=== PATIENT | female | born 1960 | race African-American/Black ===

== ENCOUNTER 2025-06-25 13:33 | Outpatient (AMB) | payer MEDICARE, SELFPAY ==
--- NOTE | 2025-06-25 13:48 | A.PHYSOV ---
Vital Signs 06/25/25 13:52 Height 5 ft 3 in Weight 137 lb BMI 24.3 Intake Visit Reasons: 3M FUV and F/U after injection 04/26/2025 Intake Note: Patient is a 64 year old female in office today for her 3 medication management. She is also here for follow up after injection 04/26/25 L5-S1 epidural steroid injection. Disability Counselor Required: No Allergies iodine Allergy (Unknown, Verified 06/25/25 13:46) Unknown HPI Comments Details: History of Present Illness The patient is a 64 year old individual presenting for a follow-up visit for chronic pain. The patient has a history of polyarticular chronic pain and sarcoidosis. Previously managed on multiple narcotic medications, the patient's pain is now managed with buprenorphine 15 mcg patches and methadone 20 mg twice a day. The patient exercises regularly. The patient recently had an injection for back-related leg pain, which provided good and lasting relief. Her lumbar radicular pain has resolved. She has had similar results with lumbar injections in the past. However, following the last two injections, the patient developed a blister each time, which appeared a day or two after the procedure below the injection site and lasted for about five days. The patient treated the blister with hydrocortisone. The patient has a known allergy to iodine. The patient reports episodes of passing out at home and has seen a primary care physician for a syncope workup. This workup included a heart monitor worn before [place], an EKG, blood work, and a CAT scan, with a cardiac ultrasound scheduled. The patient also developed a skin reaction to the EKG leads, which left red, sore marroquin on the skin. The patient has been restricted from driving and has a neurology consultation scheduled for tomorrow to rule out seizures. Pain Description - The patient suffers from chronic polyarticular pain. - The patient experiences increased pain in the legs, which is believed to be related to the back. - Currently, the patient reports minimal pain. Results - Tests and Diagnostics: A syncope workup has been initiated by the patient's primary care physician, which has included a heart monitor, an EKG, blood work, and a CAT scan. [facility] Medical History (Updated 06/25/25 @ 14:32 by Noel Lui DO) Spinal stenosis, lumbar region with neurogenic claudication Lumbar radiculitis Chronic pain syndrome Surgical History (Updated 06/25/25 @ 13:52 by Dacia Mandujano MA) History of lung surgery (Unknown) H/O tubal ligation (Unknown) H/O shoulder surgery (Unknown) H/O: hysterectomy (Unknown) Social History Household Members: Spouse Alcohol intake: current Alcohol intake frequency: does not drink Patient Tobacco Use Status: Never used Tobacco Current occupational status: retired Review of Systems Narrative Review of Systems - General: Denies fever or chills. - Integumentary: Reports developing a recurring blister below the injection site after the last two procedures, which lasts about five days. 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 - Neurological: Reports episodes of passing out at home. - Genitourinary: Denies any change in bladder habits. - Gastrointestinal: Denies any change in bowel habits. Physical Exam Exam Exam: Physical Exam Patient appears to be in no acute distress, appropriately conversant oriented. She ambulates without antalgia. She was able to perform heel walk and toe walk with support for balance. Lumbar extension was restricted. Dural tension signs were negative. Neurological examination was nonfocal. Patient demonstrated no upper motor neuron signs. Vital Signs: BMI result Body Mass Index 24.3 Assessment & Plan Assessment & Plan (1) Chronic pain syndrome: Code(s): G89.4 - Chronic pain syndrome Category: Medical (2) Lumbar radiculitis: Code(s): M54.16 - Radiculopathy, lumbar region Category: Medical (3) Spinal stenosis, lumbar region with neurogenic claudication: Code(s): M48.062 - Spinal stenosis, lumbar region with neurogenic claudication Category: Medical Plan Pain Management - Analgesia: Pain is currently minimal and well-controlled with a buprenorphine 15 mcg patch and methadone 20 mg twice daily. - Adverse Effects: The patient reports developing a blister after the last two injections, possibly related to the Betadine prep solution used. - Activities of Daily Living: The patient exercises regularly. - Affect: The patient expresses satisfaction with the current level of pain control, stating, I'm loving it. - Aberrant Drug-Related Behaviors: No aberrant behaviors were noted; the patient will call for refills when needed. Plan Patient was informed and verbally consented to the use of an ambient scribe for clinic note documentation during this visit. 1. Chronic Pain The patient's chronic pain is well-controlled with the current regimen of a buprenorphine 15 mcg patch and methadone 20 mg twice daily and after repeated lumbar epidural injection. The patient reported good and lasting relief from a recent injection for back-related leg pain. Continue current medications and follow up in three months, or sooner if needed. 2. Adverse Reaction To Skin Preparation The patient has reported developing a blister after the last two injections, not at the puncture site but inferior to it. Given the history of iodine allergy and the use of Betadine for skin prep, an allergic reaction is considered, though the localized nature is atypical. For future injections, we will use alcohol as the cleaning agent to see if this prevents the reaction. The patient was instructed to provide a reminder of this change before the next procedure. 3. Syncope And Collapse The patient is undergoing a syncope workup with their primary care physician following episodes of passing out at home. This workup includes a heart monitor, upcoming cardiac ultrasound, EKG, blood work, and a CAT scan. The patient is scheduled for a neurology consult to investigate for a possible seizure disorder. Management is deferred to the primary care physician and neurology. The patient will continue with driving restrictions as a safety precaution. Discussion Notes I reviewed the patient's status, noting that their chronic pain remains well controlled with the current regimen of a buprenorphine patch and methadone, with good relief from a recent injection for leg pain. We discussed the recurrent blisters that develop after injections. I explained that while the location of the blister is unusual for a contact allergy to the skin prep, we will use alcohol instead of Betadine for the next procedure to see if it prevents the reaction, given the patient's known iodine allergy. I advised the patient to remind me of this plan before the next injection. I acknowledged the patient's ongoing syncope workup with their primary care physician and the upcoming neurology consultation to rule out seizures. I supported the driving restriction as a necessary safety precaution until a diagnosis is established. We agreed to a follow-up in three months, and I instructed the patient to call for medication refills or any other concerns. Patient Instructions - Continue your current pain medications, including the buprenorphine patch and methadone, as prescribed. - Continue to follow up with your primary care doctor and the neurologist for the evaluation of your fainting spells. - Do not drive until your doctor tells you it is safe. - Before your next injection here, please remind me and the staff that we planned to use alcohol to clean your skin instead of the usual solution. - Schedule a follow-up appointment in three months. - Please call the office if you need medication refills or if your pain gets worse before your next appointment. Coding Level of Care Code Est Pt Level 3 (75567) Complex visit Add On G2211 Diagnoses Chronic pain syndrome G89.4 Lumbar radiculitis M54.16 Spinal stenosis, lumbar region with neurogenic claudication M48.062
[2025-06-25 13:52] VITALS: BMI 24.3
--- OUTSIDE RECORDS SUMMARY | 2025-06-25 15:34 | XMS_ITS | Clinical Summary ---
Author Organization [facility] Address [address] [place] [address] Care Team Providers Care Carpet Journeyman Name Role Phone Jeronimo Arzola MD Primary Care Provider [phone] Allergies Active Allergy Reactions Criticality Noted Date Comments Iodine 04/28/2005 Iodine Contrast Medications Medication Sig Dispensed Refills Start Date End Date Status Calcium Carbonate-Vitamin D 500-125 MG-UNIT TABS Take by mouth. 0 Active amLODIPine (NORVASC) tablet 5 mg TK 1 T PO QD 1 04/17/2019 Active dronabinol (MARINOL) 10 MG capsule Take 10 mg by mouth. 0 04/19/2019 Active hydroCHLOROthiazide (HYDRODIURIL) tablet 25 mg Take 25 mg by mouth. 0 05/15/2019 Active levothyroxine (SYNTHROID, LEVOXYL) tablet 25 mcg Take 12.5-25 mcg by mouth. 0 03/29/2019 Active lisinopril (PRINIVIL,ZESTRIL) tablet 10 mg 0 05/13/2019 Active metFORMIN (GLUCOPHAGE-XR) ER 24 hr tablet 500 mg 0 03/24/2019 Active methadone (DOLOPHINE) 10 MG tablet Take 10 mg by mouth. 0 04/19/2019 Active Morphine Sulfate ER (MS CONTIN) 30 MG TBCR Take 1 tablet by mouth. 0 04/19/2019 Active oxyCODONE-acetaminophe n (PERCOCET) 10-325 MG per tablet TK 1 T PO QID PRN P 0 04/24/2019 Active oxyMORphone (OPANA ER) 20 MG 12 hr tablet Take 20 mg by mouth. 0 05/01/2019 Active pravastatin (PRAVACHOL) tablet 80 mg TAKE 1 TABLET BY MOUTH EVERY DAY 0 05/15/2019 Active DULoxetine (CYMBALTA) DR capsule 60 mg 0 09/12/2021 Active EPINEPHrine 0.3 MG/0.3ML SOSY Inject 0.3 mg into the muscle. 0 09/25/2020 Active furosemide (LASIX) 20 MG tablet 0 09/14/2021 Active gabapentin (NEURONTIN) 100 MG capsule Take 100 mg by mouth. 0 03/09/2021 Active meloxicam (MOBIC) 15 MG tablet Take 15 mg by mouth. 0 03/09/2021 Active Misc Natural Products (Turmeric Curcumin) CAPS Take 1,000 mg by mouth. 0 Active Naloxone HCl 4 MG/0.1ML LIQD 0 08/12/2021 Active promethazine (PHENERGAN) 12.5 MG tablet Take 12.5 mg by mouth. 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 Family History Medical History Relation Name Comments Cancer Brother Hypertension Brother Hypertension Mother Diabetes Sister Hypertension Sister Relation Name Status Comments Brother Mother Sister Social History Tobacco Use Types Packs/Day Years Used Date Smoking Tobacco: Never Assessed Sex and Gender Information Value Date Recorded Sex Assigned at Not on file Gender Identity Not on file Sexual Orientation Not on file Job Start Date Occupation Industry Not on file Not on file Not on file Last Filed Vital Signs Vital Sign Reading Time Taken Comments Blood Pressure - - Pulse - - Temperature - - Respiratory Rate - - Oxygen Saturation - - Inhaled Oxygen Concentration - - Weight 77.1 kg (170 lb) 05/18/2019 2:50 PM EDT Height 160 cm (5' 3 ) 05/18/2019 2:50 PM EDT Body Mass Index 30.11 05/18/2019 2:50 PM EDT Plan of Treatment Health Maintenance Due Date Last Done Comments Hepatitis C Screening 1960 COVID-19 Vaccine (#1) 05/15/1960 Depression Screening 1971 BMI Counseling 11/13/1977 Preventative Health Evaluation 11/13/1977 Cervical Cancer Screening (Pap Smear) 11/13/1980 Colon Cancer Screening (Colonoscopy) 11/13/2004 Breast Cancer Screening (Mammogram) 11/13/2009 Shingrix-Zoster Vaccine (1 of 2) 11/13/2009 Pneumococcal Vaccine (2 of 2 - PCV) 11/20/2014 11/20/2013 Pneumococcal Vaccine (2 of 2 - PCV) 11/20/2014 11/20/2013 DTap / Tdap / Td (2 - Td or Tdap) 09/30/2020 09/30/2010 Fall Risk Assessment 11/13/2024 Osteoporosis Screening (DEXA Scan) 11/13/2024 Influenza Vaccine (#1) 2025 9, 04/20/2018, 05/30/2016, Additional history exists RSV Adult > 60+ Yrs or (1 - 1-dose 75+ series) 11/13/2034 Hepatitis B Vaccines Aged Out No long er eligible based on patient's age to complete this topic RSV Ped < 20 months Aged Out No longe r eligible based on patient's age to complete this topic Care Teams Carpet Journeyman Relationship Specialty Start Date End Date Jeronimo Arzola MD PCP - General Internal Medicine 05/03/19
== END 2025-06-25 14:09 | disposition home or self-care (01) ==
LOC: HO.HPHYS 13:34
PROVIDERS: Visit Provider Physical Medicine & Rehabilitation
DX: G89.4 Chronic pain syndrome (principal); M54.16 Radiculopathy, lumbar region; M48.062 Spinal stenosis, lumbar region with neurogenic claudication
CPT/HCPCS: 99213; G2211

== ENCOUNTER → 2025-06-25 13:33 | Outpatient (BNVA) | payer MEDICARE, SELFPAY | PROVIDERS: Visit Provider Physical Medicine & Rehabilitation | DX: M48.062 Spinal stenosis, lumbar region with neurogenic claudication (principal); G89.4 Chronic pain syndrome; M54.16 Radiculopathy, lumbar region | CPT/HCPCS: 99212 ==